=== PATIENT | male | born 1960 | race Caucasian/White ===

== ENCOUNTER → 2017-02-04 | Outpatient (CLI) | payer MEDICAID ==
[~2017-02-04] MED LIST: AMOXIL500 MG PO; LISINOPRIL 10MG10 MG PO; PHENERGAN W/CO473 M1 PO; ZANTAC 150150 MG PO
[2017-02-04 11:28] LABS: AMPHETAMINES/METAMPHETAMINES NEGATIVE ng/mL (<1000)
== END ==
LOC: LAB 10:32
PROVIDERS: Emergency Medicine
DX: Z79.899 Other long term (current) drug therapy (principal)

== ENCOUNTER → 2017-03-09 | Outpatient (CLI) | payer MEDICAID ==
[2017-03-09 16:39] LABS: AMPHETAMINES/METAMPHETAMINES NEGATIVE ng/mL (<1000)
[2017-03-11 09:38] LABS: PSA, Free 0.12 ng/mL; Prostate Specific Ag 0.3 ng/mL (0.0-4.0)
== END ==
LOC: LAB 16:00
PROVIDERS: Emergency Medicine
DX: R53.1 Weakness (principal)

== ENCOUNTER → 2017-04-07 | Outpatient (CLI) | payer MEDICAID ==
[~2017-04-07] MED LIST changes: +NEURONTIN400 MG PO; +SINGULAIR 10 MG10 MG PO
[2017-04-07 18:53] LABS: AMPHETAMINES/METAMPHETAMINES NEGATIVE ng/mL (<1000)
== END ==
LOC: LAB 17:35
PROVIDERS: Emergency Medicine
DX: Z79.899 Other long term (current) drug therapy (principal)

== ENCOUNTER → 2017-06-02 | Outpatient (CLI) | payer MEDICAID ==
[~2017-06-02] MED LIST changes: +FLONASE 50 MCG16 GM; +LISINOPRIL 20MG20 MG PO; +OXYCODONE HCL10 M1 PO; +PRILOSEC20 M1 PO
[2017-06-02 14:24] LABS: AMPHETAMINES/METAMPHETAMINES NEGATIVE ng/mL (<1000)
== END ==
LOC: LAB 13:25
PROVIDERS: Emergency Medicine
DX: Z79.899 Other long term (current) drug therapy (principal)

== ENCOUNTER → 2017-06-11 | Day surgery (SDC) | payer MEDICAID ==
[~2017-06-11] VITALS: Ht 180.3 cm; Wt 97.5 kg
--- NOTE | 2017-06-11 11:52 | Anesthesia Record ---
Anesthesia Record Part I Total IV fluids: 1500 EBL (ml): 25 Urine Output: 0 B/P: 159/82 % SaO2: 98 Pulse: 76 Resps: 14 Temp: 97 Patient is: Awake, Stable Stable to PACU at: 1150 at 1152
--- NOTE | 2017-06-11 11:53 | Anesthesia Record ---
Anesthesia Record Part II Discharge time: 1220 Destination: Same day surgery PACU nurse assessment review? Yes Patient is: Awake, Stable Anesthesia complications? No at 1151
[2017-06-11 15:42] VITALS: BP 135/75
--- NOTE | 2017-06-18 12:39 | Operative Note ---
Other ENT Procedure Date of Procedure: 06/11/17 Time of Procedure: 929 Procedure performed: 1.Nasal Septoplasty 2.Function endoscopic sirgery with bilateral total ethmoidectomies 3.Removal of right multiple nasal polyps Pre-op diagnosis: 1. Devisated nasal septum with 90% nasal airflow blockage 2. Chronic bilaterla ethmoiditis Post-op diagnosis: 1. Devaited nasal septum 2. Chronic bilateral ethmoiditis 3. multiple right nasal polyps Surgeon: Raghavendra Nicole Anesthesia: general Pre-procedure antibiotics: Ancef 1 gm Pre-procedure steroid: Decadron 12 mg Description of procedure: The face was prepped and draped. The eyes were protected with Steri-Strips. The nose was decongested with topical cocaine and 5 mL of 2 percent lidocaine with epi were injected into the nasal antral sosa and septum. A LEFT hemitransfixion incision was made and the mucoperichondrial and mucoperiosteum was elevated from both sides of the nasal septum. There was a severe deformity of the quadrangular cartilage,. The cartilage was trimmed inferiorly and posteriorly. And the redundant portions were removed. A large vomerine spur was removed. The perpendicular plate of the ethmoid was straightened. When that was done the septum could be realigned at the midline and held there with transfixion and hemitransfixion sutures. Using endoscopic sinus surgical techniques, scopes, and instruments, a RIGHT total ethmoidectomy was done and mucosal thickening was removed from the RIGHT ethmoid sinus. Similarly using the same instruments and scopes a LEFT total ethmoidectomy was done and there was significant mucosal thickening and disease in the LEFT ethmoid sinus. All of that was cleared and submitted. The nasal passages were examined further and there was evidence of posterior multiple polyps on the RIGHT side attached to the RIGHT inferior turbinate. All of those multiple polyps were removed and submitted. Bleeding for all of the procedure was less than 10 mL and stopped with suction cautery. Surgicel snow was placed in the posterior aspect of the RIGHT nasal fossa were the polyps were removed as well as between the flaps before the septum was closed. Cortisporin ointment was placed in the nasal vestibules. A drip pad dressing was applied and the patient was sent to recovery in good general condition. EBL (ml): 6 at 1233
== END ==
LOC: SDC 08:06
PROVIDERS: Otolaryngology
PROC: 09SM4ZZ Reposition Nasal Septum, Percutaneous Endoscopic Approach (ICD-10-PCS; 2017-06-11)
PROC: 09BV4ZZ Excision of Left Ethmoid Sinus, Percutaneous Endoscopic Approach (ICD-10-PCS; 2017-06-11)
PROC: 09BU4ZZ Excision of Right Ethmoid Sinus, Percutaneous Endoscopic Approach (ICD-10-PCS; 2017-06-11)
PROC: 09BL8ZZ Excision of Nasal Turbinate, Via Natural or Artificial Opening Endoscopic (ICD-10-PCS; principal; 2017-06-11 09:30)
DX: J34.2 Deviated nasal septum (principal); J33.8 Other polyp of sinus; J32.2 Chronic ethmoidal sinusitis
CPT/HCPCS: J2405

== ENCOUNTER → 2017-10-21 | Outpatient (CLI) | payer MEDICAID ==
[2017-10-21 18:58] LABS: AMPHETAMINES/METAMPHETAMINES NEGATIVE ng/mL (<1000)
== END ==
LOC: LAB 18:00
PROVIDERS: Emergency Medicine
DX: Z79.899 Other long term (current) drug therapy (principal)